=== PATIENT | male | born 1955 | race Caucasian/White ===

== ENCOUNTER → 2025-09-18 08:55 | Outpatient (REF) | payer MEDICARE, SELFPAY | LOC: DHSLP 08:55 | PROVIDERS: ATTENDING PHYSICIAN Student in an Organized Health Care Education/Training Program; FAMILY PHYSICIAN Internal Medicine | DX: G47.19 Other hypersomnia (principal); R06.83 Snoring | CPT/HCPCS: 95800 ==

== ENCOUNTER → 2025-10-12 07:49 | Outpatient (REF) | payer MEDICARE, SELFPAY | LOC: HWRAD 07:49 | PROVIDERS: ATTENDING PHYSICIAN Student in an Organized Health Care Education/Training Program; FAMILY PHYSICIAN Family Medicine | DX: J32.9 Chronic sinusitis, unspecified (principal) | CPT/HCPCS: 70486 ==